=== PATIENT | female | born 1965 | race African-American/Black ===

== ENCOUNTER 2017-03-03 07:39 | Emergency (ER) | payer MEDICAID, MEDICARE ==
[~2017-03-03] VITALS: Ht 172.7 cm; Wt 78.6 kg
[2017-03-03] MEDS ORDERED: AMLO-512 PO (07:50)
[2017-03-03] MEDS ORDERED: QUET300T2 PO (07:50)
[2017-03-03 09:09] VITALS: BP 145/48
[2017-03-03] MEDS ORDERED: KETOROLAC TROMETHAMINE 60 MG/2 ML VIAL IM ONE (09:45)
[2017-03-03] MEDS ORDERED: OxyCODONE HCL/ACETAMINOPHEN 5-325 MG TABLET PO ONE (09:45)
== END 2017-03-03 09:47 | disposition home or self-care (01) ==
LOC: EMS 07:41
DX: S39.012A Strain of muscle, fascia and tendon of lower back, initial encounter (principal); F17.210 Nicotine dependence, cigarettes, uncomplicated; K21.9 Gastro-esophageal reflux disease without esophagitis; I10 Essential (primary) hypertension; X58.XXXA Exposure to other specified factors, initial encounter; Y93.89 Activity, other specified; Y92.89 Other specified places as the place of occurrence of the external cause; Y99.8 Other external cause status
CPT/HCPCS: 96372; 99283; J1885

== ENCOUNTER 2021-05-02 16:17 | Emergency (ER) | payer SELFPAY ==
[~2021-05-02] VITALS: Ht 154.9 cm; Wt 69.5 kg
[~2021-05-02 16:17] MED LIST: AMLO-258 PO; QUET300T2 PO
[2021-05-02] MEDS ORDERED: LORazepam 2 MG/ML VIAL IM ONE (18:15)
[2021-05-02] MEDS ORDERED: HALOPERIDOL LACTATE 5 MG/ML VIAL IM ONE (18:15)
[2021-05-02] MEDS ORDERED: ZOLPIDEM TARTRATE 10 MG TABLET PO PRN (19:15)
[2021-05-02] MEDS ORDERED: LORazepam 2 MG TABLET PO PRN (19:15)
[2021-05-02] MEDS ORDERED: HALOPERIDOL 5 MG TABLET PO PRN (19:15)
[2021-05-02 19:50] LABS: COVID AG,FIA SOURCE NASOPHARYNGEAL
[2021-05-02 22:06] LABS: BASOPHILS % (AUTO) 0.5 % (0.0-2.0); EOSINOPHILS % (AUTO) 0.7 % (1.0-6.0); HEMATOCRIT 37.6 % (36-46); HEMOGLOBIN 12.2 g/dL (12.0-16.0); LYMPHOCYTES # (AUTO) 2.1 K/uL (1.0-4.8); LYMPHOCYTES % (AUTO) 22.5 % (22.0-44.0); MEAN CORPUSCULAR HEMOGLOBIN 32.2 pg (26.0-34.0); MEAN CORPUSCULAR HGB CONC 32.6 G/dL (31.0-37.0); MEAN CORPUSCULAR VOLUME 99 fL (80-100); MONOCYTES # (AUTO) 0.7 K/uL (0.1-1.0); MONOCYTES % (AUTO) 7.5 % (2.0-9.0); NEUTROPHILS # (AUTO) 6.3 K/uL (1.8-7.7); NEUTROPHILS % (AUTO) 68.8 % (40.0-70.0); PLATELET COUNT (AUTO) 187 K/uL (150-450); RED BLOOD CELL COUNT(AUTO) 3.81 MIL/uL (4.00-5.20)
[2021-05-02 22:21] LABS: ANION GAP 3 mmol/L (8-16); CALCIUM, TOTAL 9.8 mg/dL (8.8-10.5); CARBON DIOXIDE 28 mmol/L (22-29); CHLORIDE 111 mmol/L (98-107); CREATININE 1.06 mg/dL (0.60-1.30); GLOMERULAR FILTR. RATE CALC > 60 mL/min (>60); GLUCOSE,RANDOM 100 mg/dL (70-110); POTASSIUM 4.1 mmol/L (3.5-5.1); SODIUM SERUM 142 mmol/L (136-145); UREA NITROGEN, BLOOD 15 mg/dL (7-18)
[2021-05-02 22:26] LABS: ALANINE AMINOTRANSFERASE 22 U/L (12-78); ALKALINE PHOSPHATASE 81 U/L (46-116); ASPARTATE AMINOTRANSFERASE 22 U/L (15-37); BILIRUBIN,TOTAL 0.4 mg/dL (0.1-1.0); TOTAL PROTEIN, SERUM 6.6 g/dL (6.4-8.2)
[2021-05-02 22:27] LABS: SALICYLATE 4.1 mg/dL (2.8-20.0)
[2021-05-02 22:31] LABS: ACETAMINOPHEN < 2 mcg/mL (10-30)
[2021-05-03 05:53] LABS: CHOL/HDL RATIO 3.2 (3.9-5.7)
[2021-05-03 08:30] VITALS: BP 133/70
== END 2021-05-03 12:19 | disposition home or self-care (01) ==
LOC: EMS 16:20
DX: R45.851 Suicidal ideations (principal); F69 Unspecified disorder of adult personality and behavior; K21.9 Gastro-esophageal reflux disease without esophagitis; I10 Essential (primary) hypertension; F20.9 Schizophrenia, unspecified; F17.210 Nicotine dependence, cigarettes, uncomplicated; Z20.822 Contact with and (suspected) exposure to COVID-19; Z90.710 Acquired absence of both cervix and uterus
CPT/HCPCS: 36415; 80053; 80061; 85025; 87426; 96372; 99291; G0480; J1630; J2060; G0481

== ENCOUNTER 2021-11-25 17:27 | Emergency (ER) | payer OTHER ==
[~2021-11-25] VITALS: Ht 154.9 cm; Wt 66.8 kg
[2021-11-25 17:53] VITALS: BP 156/79
== END 2021-11-25 20:00 | disposition left against medical advice (07) ==
LOC: EMS 17:27
DX: Z53.21 Procedure and treatment not carried out due to patient leaving prior to being seen by health care provider (principal)